=== PATIENT | female | born 2000 | race American Indian/Alaskan Native ===

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

== ENCOUNTER 2021-08-17 04:23 | Emergency (ER) | payer SELFPAY ==
[2021-08-17] MEDS ORDERED: Sodium Chloride 0.9% 1,000 ML IV ONE (05:07)
[2021-08-17] MEDS ORDERED: Sodium Chloride 0.9% 10 ML Syringe FLUSH PRN (05:08)
[2021-08-17 05:10] LABS: ESTIMATED GFR 108 mL/min (>60)
== END 2021-08-17 06:53 | disposition home or self-care (01) ==
LOC: FB.ED 04:23
DX: O20.9 Hemorrhage in early pregnancy, unspecified (principal); Z3A.01 Less than 8 weeks gestation of pregnancy
CPT/HCPCS: 36415; 80053; 81001; 84702; 85025; 99284

== ENCOUNTER 2023-03-10 08:49 | Emergency (ER) | payer OTHER | END 2023-03-10 09:50 | disposition home or self-care (01) | LOC: FB.ED 08:49 | DX: O9A.213 Injury, poisoning and certain other consequences of external causes complicating pregnancy, third trimester (principal); S39.012A Strain of muscle, fascia and tendon of lower back, initial encounter; M46.1 Sacroiliitis, not elsewhere classified; Z3A.29 29 weeks gestation of pregnancy; X58.XXXA Exposure to other specified factors, initial encounter | CPT/HCPCS: 99283 ==

== ENCOUNTER 2023-08-26 23:48 | Emergency (ER) | payer OTHER ==
[2023-08-27] MEDS ORDERED: Sodium Chloride 0.9% 10 ML Syringe FLUSH PRN (00:03)
[2023-08-27] MEDS: Ondansetron 4 MG/2 ML SDV IVPUSH ONE (00:13)
[2023-08-27] MEDS: Ketorolac 30 MG/ML SDV IVPUSH ONE (00:14)
[2023-08-27 00:25] LABS: BASOPHILS ABSOLUTE AUTO 0.1 x10-3/uL (0.0-0.1); BASOPHILS PERCENT AUTO 0.5 % (0.2-1.5); EOSINOPHILS ABSOLUTE AUTO 0.1 x10-3/uL (0.0-0.8); EOSINOPHILS PERCENT AUTO 0.4 % (0.6-8.1); HEMATOCRIT 40.3 % (34.2-48.2); HEMOGLOBIN 13.4 g/dL (11.4-15.5); LYMPHOCYTES ABSOLUTE AUTO 4.5 x10-3/uL (1.0-4.4); MEAN CORPUSCULAR HGB CONC 33.3 g/dL (31.9-34.8); MEAN CORPUSCULAR VOLUME 84.1 fL (76.7-100.5); MEAN PLATELET VOLUME 7.7 fL (7.1-12.4); MONOCYTES ABSOLUTE AUTO 0.8 x10-3/uL (0.3-1.0); MONOCYTES PERCENT AUTO 5.3 % (4.4-15.7); NEUTROPHILS ABSOLUTE AUTO 8.7 x10-3/uL (1.5-6.3); NEUTROPHILS PERCENT AUTO 61.8 % (30.8-76.2); PLATELET COUNT,PLT 529 x10(3)uL (151-488); RED CELL DISTRIBUTION WIDTH 13.3 % (12.3-16.5); WHITE BLOOD CELL COUNT,WBC 14.2 x10-3/uL (3.0-10.3)
[2023-08-27 00:33] LABS: BLOOD UREA NITROGEN,BUN 10 mg/dL (7-18); BUN/CREATININE RATIO 12.5 (9-20); CARBON DIOXIDE,CO2 26 mmol/L (21-32); CHLORIDE,CL 104 mmol/L (100-110); CREATININE 0.8 mg/dL (0.55-1.02); ESTIMATED GFR 107 mL/min (>60); GLUCOSE RANDOM 98 mg/dL (80-116); POTASSIUM,K 3.2 mmol/L (3.5-5.3); SODIUM,NA 143 mmol/L (135-145)
[2023-08-27 00:39] LABS: A/G RATIO 0.9; ALANINE AMINOTRANSFERASE,ALT 26 U/L (12-36); ALBUMIN 3.7 g/dL (3.5-5.2); ALKALINE PHOSPHATASE 133 IU/L (56-112); ASPARTATE AMNIOTRANSFERASE,AST 27 IU/L (5-25); BILIRUBIN TOTAL 0.6 mg/dL (0.1-1.3); PROTEIN TOTAL,TP 7.8 g/dL (6.0-8.0)
[2023-08-27] MEDS: Iopamidol 755 Mg/ML 100 ML Bottle IV SCH (00:45)
[2023-08-27] MEDS ORDERED: Aspirin 81 MG Tab.Chew PO ONE (01:32)
== END 2023-08-27 02:31 | disposition home or self-care (01) ==
LOC: FB.ED 23:48
DX: K80.20 Calculus of gallbladder without cholecystitis without obstruction (principal); R10.11 Right upper quadrant pain
CPT/HCPCS: 74177; 80053; 83690; 85025; 96374; 96375; 99285; J1885; J2405; Q9967